=== PATIENT | male | born 1990 | race Caucasian/White ===

== ENCOUNTER 2020-12-07 20:27 | Emergency (ER) | payer OTHER ==
[~2020-12-07] VITALS: Ht 167.6 cm; Wt 81.8 kg
[2020-12-07] MEDS ORDERED: SODIUM CHLORIDE FLUSH 10ML SYR IVF ONE (21:00)
[2020-12-07] MEDS ORDERED: SODIUM CHLORIDE 0.9% 1,000ML IVBOLUS ONE (21:00)
[2020-12-07 21:05] LABS: BASOPHILS % (AUTO) 1 % (0-1); EOSINOPHILS % (AUTO) 1 % (1-7); LYMPHOCYTES % (AUTO) 43 % (22-44); MEAN CORPUSCULAR HEMOGLOBIN 30.3 pg (27.5-34.5); MEAN CORPUSCULAR HGB CONC 35.6 g/dL (33.2-36.2); MEAN PLATELET VOLUME 7.7 fL (7.4-10.4); MONOCYTES % (AUTO) 7 % (2-9); NEUTROPHILS % (AUTO) 48 % (42-75); PLATELET COUNT 308 x10^3/uL (130-400); RED BLOOD COUNT 5.22 x10^6/uL (4.38-5.82); RED CELL DISTRIBUTION WIDTH 14.5 % (9.4-14.8)
[2020-12-07 21:12] LABS: ALANINE AMINOTRANSFERASE 39 U/L (12-78); ALBUMIN 3.7 g/dL (3.4-5.0); ANION GAP 7 mmol/L (5-15); CALCIUM 8.2 mg/dL (8.5-10.1); CHLORIDE 106 mmol/L (98-107); CREATININE 0.76 mg/dL (0.7-1.3)
[2020-12-07 21:16] LABS: ALKALINE PHOSPHATASE 66 U/L (45-117); BILIRUBIN,TOTAL 0.6 mg/dL (0.2-1.0); TOTAL PROTEIN 7.3 g/dL (6.4-8.2); TROPONIN I < 0.015 ng/mL (0.000-0.045)
--- NOTE | 2020-12-07 21:30 | NUR ---
PT STATES UNABLE TO GIVE URINE SAMPLE AT THIS TIME
[2020-12-07 23:26] VITALS: BP 97/61
== END 2020-12-07 23:45 | disposition home or self-care (01) ==
LOC: ED 23:00
DX: F10.129 Alcohol abuse with intoxication, unspecified (principal); R07.89 Other chest pain; F15.10 Other stimulant abuse, uncomplicated; F11.10 Opioid abuse, uncomplicated; F17.210 Nicotine dependence, cigarettes, uncomplicated; E11.9 Type 2 diabetes mellitus without complications; I10 Essential (primary) hypertension; Y90.0 Blood alcohol level of less than 20 mg/100 ml
CPT/HCPCS: 36415; 71045; 80053; 80320; 84484; 85025; 85379; 93005; 96360; 99285; 99406; J7030; G0480

== ENCOUNTER 2020-12-11 19:57 | Emergency (ER) | payer MEDICAID, OTHER ==
[~2020-12-11] VITALS: Ht 167.6 cm; Wt 76.6 kg
--- NOTE | 2020-12-11 21:29 | NUR ---
MED PEDS: PT. TO ROOM FROM LOBBY AT THIS TIME.
[2020-12-11 21:31] LABS: BASOPHILS % (AUTO) 1 % (0-1); EOSINOPHILS % (AUTO) 1 % (1-7); LYMPHOCYTES % (AUTO) 26 % (22-44); MEAN CORPUSCULAR HEMOGLOBIN 30.2 pg (27.5-34.5); MEAN CORPUSCULAR HGB CONC 35.2 g/dL (33.2-36.2); MEAN PLATELET VOLUME 7.6 fL (7.4-10.4); MONOCYTES % (AUTO) 9 % (2-9); NEUTROPHILS % (AUTO) 63 % (42-75); PLATELET COUNT 330 x10^3/uL (130-400); RED BLOOD COUNT 5.61 x10^6/uL (4.38-5.82); RED CELL DISTRIBUTION WIDTH 14.7 % (9.4-14.8)
--- NOTE | 2020-12-11 21:35 | NUR ---
PT PRESENTS TO ED AFTER SMOKING SOME BAD METH. PT STATES HE IS HEARING VOICES AND DOESN'T FEEL LIKE HIS EYES ARE STRAIGHT OR HIS HEAD IS STRAIGHT. PT IN GOWN, RESTING ON GURNEY, AND PLACED ON CONTINUOUS MONITORING.
[2020-12-11 21:44] LABS: ALBUMIN 4.3 g/dL (3.4-5.0); ANION GAP 11 mmol/L (5-15); CALCIUM 9.2 mg/dL (8.5-10.1); CHLORIDE 98 mmol/L (98-107); CREATININE 0.86 mg/dL (0.7-1.3)
[2020-12-11 21:46] LABS: SALICYLATE LEVEL < 1.7 mg/dL (2.8-20.0)
[2020-12-11] MEDS ORDERED: ZIPRASIDONE 20 MG INJ IM ONE ×2 (21:51→22:00)
--- NOTE | 2020-12-11 22:10 | NUR ---
PT GIVEN MEDS, RESTING ON GURNEY, DENIES NEEDS AT THIS TIME.
[2020-12-11 22:28] LABS: AMPHETAMINE SCREEN, URINE Positive (Negative); BARBITURATE SCREEN, URINE Negative (Negative); BENZODIAZEPINE SCREEN, URINE Negative (Negative); CANNABINOID SCREEN, URINE Negative (Negative); COCAINE SCREEN, URINE Negative (Negative); METHADONE SCREEN, URINE Negative (Negative); OPIATE SCREEN, URINE Negative (Negative)
[2020-12-11 22:49] VITALS: BP 100/55
--- NOTE | 2020-12-11 22:50 | NUR ---
Patient given discharge instructions and they have confirmed that they understand the instructions. Patient ambulatory with steady gait.
== END 2020-12-11 22:51 | disposition home or self-care (01) ==
LOC: ED 22:50
DX: F15.150 Other stimulant abuse with stimulant-induced psychotic disorder with delusions (principal); Z72.9 Problem related to lifestyle, unspecified; I10 Essential (primary) hypertension; E11.9 Type 2 diabetes mellitus without complications
CPT/HCPCS: 36415; 80048; 80299; 80307; 80320; 82040; 85025; 96372; 99283; J3486; 80329; 96374; G0480